=== PATIENT | male | born 1975 | race Caucasian/White ===

== ENCOUNTER → 2020-08-04 | Outpatient (CLI) | payer OTHER ==
--- NOTE | 2020-08-04 16:24 | KCIC ---
Examination: MRI of the right ankle without contrast HISTORY: History of right ankle sprain COMPARISON: None available TECHNIQUE: Multiplanar, multisequence MR imaging of the right ankle performed without contrast FINDINGS: The attachment of the Achilles tendon, plantar fascia to the calcaneus grossly appears intact. The al ignment of the tarsal bones grossly appears intact. Moderate joint space loss identified at tendons l ikely degenerative changes Small avulsion fractures or unfused ossicles identified in the medial malleolus region. The deltoid l igament is not clearly evident. The anterior, posterior tibiofibular ligament appear intact. Probable tear of the anterior talofibular ligament with fluid in this region probably chronic tear. Mild incr eased T2 signal with some small amount of fluid identified in the peroneus longus, peroneus brevis te ndon region likely tendinosis with mild tenosynovitis There are multiple low intensity foci identified along the medial aspect of the posterior tibialis te ndon probably in the tendon sheath likely multiple loose bodies There is a multiloculated cystic structure arising from the sinus tarsi region measuring 2.7 cm exten ding laterally likely ganglion cyst. The anterior extensor compartment tendons grossly appears intact. Moderate joint space loss identifie d in the ankle joint likely degenerative changes with near complete cartilage loss identified in the ankle joint likely degenerative changes. Small low intensity focus measuring 5 mm identified in the m edial talar dome with corresponding high T2 signal could be a small osteochondral defect. Moderate si ze osteophyte formation identified in the medial aspect of the talus. 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 IMPRESSION: 1. Multiple low intensity foci identified along the medial aspect of the posterior tibialis tendon p robably multiple loose bodies. Consider CT for further evaluation. 2. 2.7 cm multiloculated cystic structure arising from the sinus tarsi region measuring 2.7 cm exten ding laterally likely ganglion cyst. 3. 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 Probably tear of the deltoid ligament .Small avulsion fractures or unfused ossicles identified in the medial malleolus region 4. Moderate degenerative changes ankle joint. 5. Small low intensity focus identified in the medial talar dome with corresponding high T2 signal c ould be a small osteochondral defect. 6. Mild tendinosis / tenosynovitis peroneal tendons. 7. 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 Electronically signed by: Benjamin Lo MD (08/04/2020 4:21 PM) [id number]
== END ==
LOC: KCIC MRI 14:30
PROVIDERS: ATTEND Family Medicine Sports Medicine
DX: S93.491A Sprain of other ligament of right ankle, initial encounter (principal); M19.071 Primary osteoarthritis, right ankle and foot; X58.XXXA Exposure to other specified factors, initial encounter; Y93.89 Activity, other specified; Y92.89 Other specified places as the place of occurrence of the external cause; Y99.8 Other external cause status
CPT/HCPCS: 73721